=== PATIENT | male | born 1930 | race Caucasian/White ===

== ENCOUNTER 2017-01-01 23:42 | Inpatient (IN) | payer MEDICARE, BC ==
[2017-01-02] MEDS: SODIUM CHLORIDE 0.9% FLUSH 10 ML SOL IV PRN (00:15)
[2017-01-02 00:21] LABS: BASOPHILS % (AUTO) 0 % (0-3); EOSINOPHILS % (AUTO) 0 % (0-9); HEMATOCRIT 33 % (39-53); MEAN CORPUSCULAR HGB CONC 32.7 gm/dl (32.0-36.0); MEAN CORPUSCULAR VOLUME 92 fL (80-100); MONOCYTES % (AUTO) 7.7 % (0-12); NEUTROPHILS % (AUTO) 86.1 % (37-80)
[2017-01-02 00:35] LABS: ALBUMIN 3.2 gm/dl (3.4-5.0); CALCIUM 8.1 mg/dl (8.5-10.1); POTASSIUM 4.2 mMol/L (3.5-5.1)
[2017-01-02 01:46] LABS: APPEARANCE,URINE Clear; BILIRUBIN,URINE NEGATIVE (NEGATIVE); COLOR,URINE Yellow; GLUCOSE, URINE (UA) NEGATIVE (NEGATIVE); KETONES,URINE NEGATIVE (NEGATIVE); LEUKOCYTE ESTERASE ,URINE NEGATIVE (NEGATIVE); NITRATE,URINE NEGATIVE (NEGATIVE); OCCULT BLOOD,URINE NEGATIVE (NEG-TRACE)
[2017-01-02] MEDS ORDERED: LEVOFLOXACIN 25 MG/ML SOL IV ONE (01:49)
[2017-01-02] MEDS ORDERED: ACETAMINOPHEN 325 MG ONE (01:49)
[2017-01-02] MEDS: ACETAMINOPHEN 325 MG PO PRN ×2 (01:50→20:56)
[2017-01-02 02:04] LABS: RBC,URINE 0-1 (0-3AV/HPF); WBC,URINE 0-2 (0-5AV/HPF)
[2017-01-02] MEDS: LEVOFLOXACIN 25 MG/ML 750 MG in SODIUM CHLORIDE 0.9% 250 ML 150 ML IV SCH (02:14)
[2017-01-02] MEDS ORDERED: TRIAMCINOLONE 0.1% CREAM CRE TOP PRN (02:22)
[2017-01-02] MEDS ORDERED: OMEPRAZOLE 40 MG ECC PO PRN (02:22)
[2017-01-02] MEDS ORDERED: NITROGLYCERIN 0.4 MG TAB SL PRN (02:22)
[2017-01-02] MEDS ORDERED: FUROSEMIDE 20 MG TAB PO SCH (02:30)
[2017-01-02 08:52] LABS: BASOPHILS % (AUTO) 1 % (0-3); EOSINOPHILS % (AUTO) 1 % (0-9); HEMATOCRIT 32 % (39-53); MEAN CORPUSCULAR HGB CONC 32.8 gm/dl (32.0-36.0); MEAN CORPUSCULAR VOLUME 92 fL (80-100); MONOCYTES % (AUTO) 11.4 % (0-12); NEUTROPHILS % (AUTO) 73.1 % (37-80)
[2017-01-02 09:07] LABS: CALCIUM 8.3 mg/dl (8.5-10.1); POTASSIUM 4.2 mMol/L (3.5-5.1)
[2017-01-02] MEDS: ALLOPURINOL 100 MG TAB PO SCH ×2 (09:09→17:30)
[2017-01-02] MEDS: ENOXAPARIN 40 MG SOL SC SCH (09:10)
[2017-01-02] MEDS: SERTRALINE HYDROCHLORIDE 50 MG TAB PO SCH (09:10)
[2017-01-02] MEDS: METOPROLOL SUCCINATE 50 MG ER TAB PO SCH (09:10)
[2017-01-02] MEDS: POTASSIUM CHLORIDE 10 MEQ TER PO SCH ×2 (09:10→17:30)
[2017-01-02] MEDS: FUROSEMIDE 20 MG TAB PO SCH (09:12)
[2017-01-02] MEDS: ZINC 50 MG PO SCH (11:08)
[2017-01-02] MEDS: SODIUM CHLORIDE 0.9% FLUSH 10 ML SOL IV SCH ×2 (14:13→22:27)
[2017-01-02] MEDS: PSYLLIUM 3.6 GM/1 TBS PDR PO SCH (17:43)
[2017-01-02] MEDS: ASPIRIN 81 MG CHEWABLE CTB PO SCH (20:53)
[2017-01-02] MEDS: PRAVASTATIN SODIUM 20 MG TAB PO SCH (20:53)
[2017-01-02] MEDS: FAMOTIDINE 20 MG TAB PO SCH (20:53)
[2017-01-03] MEDS ORDERED: SODIUM CHLORIDE 0.9% 250 ML 250 ML IV ONE (01:51)
[2017-01-03] MEDS ORDERED: LEVOFLOXACIN 25 MG/ML SOL IV ONE (01:51)
[2017-01-03] MEDS: LEVOFLOXACIN 25 MG/ML 750 MG in SODIUM CHLORIDE 0.9% 250 ML 150 ML IV SCH (01:59)
[2017-01-03] MEDS: SODIUM CHLORIDE 0.9% FLUSH 10 ML SOL IV PRN (02:03)
[2017-01-03 02:34] VITALS: RESP 20
[2017-01-03] MEDS: SODIUM CHLORIDE 0.9% FLUSH 10 ML SOL IV SCH ×3 (05:33→21:37)
[2017-01-03 08:24] LABS: BASOPHILS % (AUTO) 1 % (0-3); EOSINOPHILS % (AUTO) 4 % (0-9); HEMATOCRIT 32 % (39-53); MEAN CORPUSCULAR HGB CONC 33.2 gm/dl (32.0-36.0); MEAN CORPUSCULAR VOLUME 93 fL (80-100); MONOCYTES % (AUTO) 9.5 % (0-12); NEUTROPHILS % (AUTO) 67.7 % (37-80)
[2017-01-03] MEDS: ALLOPURINOL 100 MG TAB PO SCH ×2 (09:03→17:44)
[2017-01-03] MEDS: POTASSIUM CHLORIDE 10 MEQ TER PO SCH ×2 (09:03→17:44)
[2017-01-03] MEDS: METOPROLOL SUCCINATE 50 MG ER TAB PO SCH (09:06)
[2017-01-03] MEDS: FUROSEMIDE 20 MG TAB PO SCH (09:06)
[2017-01-03] MEDS: ENOXAPARIN 40 MG SOL SC SCH (09:06)
[2017-01-03] MEDS: ZINC 50 MG PO SCH (09:07)
[2017-01-03] MEDS: SERTRALINE HYDROCHLORIDE 50 MG TAB PO SCH (09:07)
[2017-01-03] MEDS ORDERED: LEVOFLOXACIN 500 MG TAB PO SCH (21:00)
[2017-01-03] MEDS: PRAVASTATIN SODIUM 20 MG TAB PO SCH (21:33)
[2017-01-03] MEDS: FAMOTIDINE 20 MG TAB PO SCH (21:33)
[2017-01-03] MEDS: ASPIRIN 81 MG CHEWABLE CTB PO SCH (21:33)
[2017-01-04] MEDS ORDERED: FUROSEMIDE 40 MG TAB PO SCH ×2 (02:22→09:00)
[2017-01-04] MEDS: SODIUM CHLORIDE 0.9% FLUSH 10 ML SOL IV SCH (06:40)
[2017-01-04 07:18] LABS: CALCIUM 8.4 mg/dl (8.5-10.1); POTASSIUM 4.3 mMol/L (3.5-5.1)
[2017-01-04 07:31] VITALS: BP 128/59; PULSE 69; TEMP 98.4; O2SAT 93
[2017-01-04 07:31] LABS: BASOPHILS % (AUTO) 1 % (0-3); EOSINOPHILS % (AUTO) 2 % (0-9); HEMATOCRIT 33 % (39-53); MEAN CORPUSCULAR HGB CONC 33.3 gm/dl (32.0-36.0); MEAN CORPUSCULAR VOLUME 92 fL (80-100); MONOCYTES % (AUTO) 9.5 % (0-12)
[2017-01-04] MEDS: POTASSIUM CHLORIDE 10 MEQ TER PO SCH (08:42)
[2017-01-04] MEDS: ALLOPURINOL 100 MG TAB PO SCH (08:42)
[2017-01-04] MEDS: SERTRALINE HYDROCHLORIDE 50 MG TAB PO SCH (08:43)
[2017-01-04] MEDS: ZINC 50 MG PO SCH (08:43)
[2017-01-04] MEDS: METOPROLOL SUCCINATE 50 MG ER TAB PO SCH (08:43)
[2017-01-04] MEDS: ENOXAPARIN 40 MG SOL SC SCH (08:44)
[2017-01-04] MEDS: PSYLLIUM 3.6 GM/1 TBS PDR PO SCH (08:45)
[2017-01-04] MEDS ORDERED: PANTOPRAZOLE SODIUM 40 MG ECT PO PRN (10:13)
== END 2017-01-04 14:10 | DRG 195 ==
LOC: ED 23:42 → ACUTE CARE 01-02 01:54
PROVIDERS: ADMIT Emergency Medicine; ATTEND Emergency Medicine
DX: J18.9 Pneumonia, unspecified organism (principal); I50.9 Heart failure, unspecified; R53.1 Weakness; Z95.0 Presence of cardiac pacemaker; Z72.0 Tobacco use; R07.9 Chest pain, unspecified
CPT/HCPCS: 36415; 70450; 71010; 80048; 80053; 81001; 83880; 84484; 85025; 87040; 93005; 94150; 94760; 99222; 99231; 99285; J1650; J1956; A6232

== ENCOUNTER 2017-01-07 18:12 | Emergency (ER) | payer MEDICARE, BC ==
[2017-01-07 18:23] VITALS: RESP 26; TEMP 98.7; O2SAT 94
[2017-01-07 18:48] VITALS: BP 109/42; PULSE 80
== END 2017-01-07 19:14 | DRG 206 ==
LOC: ED 18:12
DX: T17.990A Other foreign object in respiratory tract, part unspecified in causing asphyxiation, initial encounter (principal)
CPT/HCPCS: 70360; 71010; 99282

== ENCOUNTER 2017-04-07 00:41 | Inpatient (IN) | payer MEDICARE, BC ==
[2017-04-07 02:15] LABS: APPEARANCE,URINE Clear; BILIRUBIN,URINE NEGATIVE (NEGATIVE); COLOR,URINE Dark yellow; GLUCOSE, URINE (UA) NEGATIVE (NEGATIVE); KETONES,URINE TRACE (NEGATIVE); LEUKOCYTE ESTERASE ,URINE NEGATIVE (NEGATIVE); NITRATE,URINE NEGATIVE (NEGATIVE); OCCULT BLOOD,URINE NEGATIVE (NEG-TRACE); PH,URINE 5.5; UROBILINOGEN,URINE 0.2 (0.2-1.0 EU)
[2017-04-07 02:18] LABS: BASOPHILS % (AUTO) 1 % (0-3); EOSINOPHILS % (AUTO) 0 % (0-9); HEMATOCRIT 35 % (39-53); MEAN CORPUSCULAR HGB CONC 32.9 gm/dl (32.0-36.0); MEAN CORPUSCULAR VOLUME 88 fL (80-100); MONOCYTES % (AUTO) 9.3 % (0-12); NEUTROPHILS % (AUTO) 83.3 % (37-80)
[2017-04-07 02:25] LABS: ALBUMIN 3.1 gm/dl (3.4-5.0); CALCIUM 8.7 mg/dl (8.5-10.1); POTASSIUM 4.6 mMol/L (3.5-5.1)
[2017-04-07 02:27] LABS: RBC,URINE 0-1 (0-3AV/HPF); WBC,URINE 0-2 (0-5AV/HPF)
[2017-04-07] MEDS ORDERED: LORAZEPAM 2 MG/ML SOL ONE (02:32)
[2017-04-07] MEDS ORDERED: LORAZEPAM 2 MG/ML SOL IM ONE (02:32)
[2017-04-07] MEDS ORDERED: HYDROMORPHONE 1 MG/ML SYRINGE IV ONE (02:55)
[2017-04-07] MEDS ORDERED: HYDROMORPHONE HCL 2 MG/ML SOL ONE (02:57)
[2017-04-07] MEDS ORDERED: LEVOFLOXACIN 500 MG (PREMIX) 500 MG/100 ML SOL IV ONE ×2 (05:21→05:30)
[2017-04-07] MEDS ORDERED: HYDROMORPHONE 1 MG/ML SYRINGE IV PRN (05:22)
[2017-04-07] MEDS: SODIUM CHLORIDE 0.9% 1000ML 1,000 ML IV SCH ×2 (05:45→16:45)
[2017-04-07] MEDS ORDERED: DM/GUAIFENESIN SYRUP 10 ML SYRP PO PRN (08:33)
[2017-04-07] MEDS ORDERED: PSYLLIUM HUSK PO PRN (08:33)
[2017-04-07] MEDS ORDERED: TRIAMCINOLONE 0.1% CREAM CRE TOP PRN (08:33)
[2017-04-07] MEDS ORDERED: ALBUTEROL HFA 60 PUFF/INHALER INH PRN (08:33)
[2017-04-07] MEDS ORDERED: ACETAMINOPHEN 325 MG PO PRN (08:33)
[2017-04-07] MEDS ORDERED: FUROSEMIDE 20 MG TAB PO SCH (09:00)
[2017-04-07] MEDS ORDERED: POTASSIUM CHLORIDE 10 MEQ TER PO SCH (09:00)
[2017-04-07] MEDS ORDERED: METOPROLOL SUCCINATE 50 MG ER TAB PO SCH (09:00)
[2017-04-07] MEDS ORDERED: ZINC 50 MG PO SCH (09:00)
[2017-04-07] MEDS: ENOXAPARIN 40 MG SOL SC SCH (10:00)
[2017-04-07] MEDS: SODIUM CHLORIDE 0.9% FLUSH 10 ML SOL IV PRN ×2 (10:00→10:21)
[2017-04-07] MEDS: ESOMEPRAZOLE SODIUM 40 MG VIAL IV SCH (10:01)
[2017-04-07] MEDS: HYDROMORPHONE HCL 2 MG/ML SOL IV PRN (13:51)
[2017-04-07] MEDS ORDERED: ALLOPURINOL 100 MG TAB PO SCH (17:00)
[2017-04-07] MEDS ORDERED: ASPIRIN 81 MG CHEWABLE CTB PO SCH (18:00)
[2017-04-07] MEDS ORDERED: DEXTROSE/SALINE 0.9% 1,000 ML with POTASSIUM CHLORIDE 2 MEQ/ML 20 MEQ IV SCH (19:45)
[2017-04-07] MEDS ORDERED: FAMOTIDINE 20 MG TAB PO SCH (21:00)
[2017-04-07] MEDS ORDERED: PRAVASTATIN SODIUM 20 MG TAB PO SCH (21:00)
[2017-04-07] MEDS: DEXTROSE/SALINE 0.45/KCL 20MEQ 1,000 ML/1,000 ML SOL IV SCH (22:12)
[2017-04-07] MEDS ORDERED: ACETAMINOPHEN 650 MG SUP PR PRN (23:48)
[2017-04-08] MEDS ORDERED: ACETAMINOPHEN 650 MG SUP PR ONE (00:02)
[2017-04-08] MEDS: HYDROMORPHONE HCL 2 MG/ML SOL IV PRN ×2 (00:12→03:34)
[2017-04-08] MEDS ORDERED: LORAZEPAM 2 MG/ML SOL IV ONE (01:07)
[2017-04-08] MEDS ORDERED: OMEPRAZOLE 20 MG CAPSULE PO SCH (07:00)
[2017-04-08 07:24] LABS: BASOPHILS % (AUTO) 1 % (0-3); EOSINOPHILS % (AUTO) 0 % (0-9); HEMATOCRIT 34 % (39-53); MEAN CORPUSCULAR VOLUME 89 fL (80-100); MONOCYTES % (AUTO) 8.9 % (0-12); NEUTROPHILS % (AUTO) 81.5 % (37-80)
[2017-04-08 07:37] LABS: CALCIUM 8.5 mg/dl (8.5-10.1); POTASSIUM 4.5 mMol/L (3.5-5.1)
[2017-04-08] MEDS ORDERED: HALOPERIDOL LACTATE 5 MG/ML SOL IV PRN (08:14)
[2017-04-08] MEDS: DEXTROSE/SALINE 0.45/KCL 20MEQ 1,000 ML/1,000 ML SOL IV SCH ×2 (08:32→19:38)
[2017-04-08] MEDS ORDERED: LEVOFLOXACIN 25 MG/ML 500 MG in SODIUM CHLORIDE 0.9% 100 ML 100 ML IV SCH (09:00)
[2017-04-08] MEDS: ESOMEPRAZOLE SODIUM 40 MG VIAL IV SCH (09:22)
[2017-04-08] MEDS: SODIUM CHLORIDE 0.9% FLUSH 10 ML SOL IV PRN (09:23)
[2017-04-08] MEDS: ENOXAPARIN 40 MG SOL SC SCH (09:23)
[2017-04-09] MEDS: HYDROMORPHONE HCL 2 MG/ML SOL IV PRN (02:08)
[2017-04-09] MEDS ORDERED: ACETAMINOPHEN 325 MG PO PRN (03:21)
[2017-04-09] MEDS: DEXTROSE/SALINE 0.45/KCL 20MEQ 1,000 ML/1,000 ML SOL IV SCH (05:45)
[2017-04-09 07:23] LABS: BASOPHILS % (AUTO) 0 % (0-3); EOSINOPHILS % (AUTO) 0 % (0-9); HEMATOCRIT 33 % (39-53); MEAN CORPUSCULAR HGB CONC 32.7 gm/dl (32.0-36.0); MEAN CORPUSCULAR VOLUME 88 fL (80-100); MONOCYTES % (AUTO) 7.7 % (0-12); NEUTROPHILS % (AUTO) 85.8 % (37-80)
[2017-04-09 07:27] LABS: ALBUMIN 2.6 gm/dl (3.4-5.0); CALCIUM 8.4 mg/dl (8.5-10.1)
[2017-04-09] MEDS: LEVOFLOXACIN 500 MG TAB PO SCH (09:03)
[2017-04-09] MEDS: PANTOPRAZOLE SODIUM 40 MG ECT PO SCH (09:03)
[2017-04-09] MEDS: ENOXAPARIN 40 MG SOL SC SCH (09:04)
[2017-04-09] MEDS: SODIUM CHLORIDE 0.9% FLUSH 10 ML SOL IV SCH (20:05)
[2017-04-09] MEDS ORDERED: QUETIAPINE FUMARATE 25 MG TAB PO SCH (21:00)
[2017-04-10] MEDS: SODIUM CHLORIDE 0.9% FLUSH 10 ML SOL IV SCH ×3 (05:03→20:05)
[2017-04-10] MEDS ORDERED: OMEPRAZOLE 20 MG CAPSULE PO SCH (07:00)
[2017-04-10] MEDS: PANTOPRAZOLE SODIUM 40 MG ECT PO SCH (09:43)
[2017-04-10] MEDS: LEVOFLOXACIN 500 MG TAB PO SCH (09:43)
[2017-04-10] MEDS: ENOXAPARIN 40 MG SOL SC SCH (09:44)
[2017-04-10] MEDS: MELATONIN 3 MG TAB PO PRN (19:09)
[2017-04-10] MEDS ORDERED: SODIUM CHLORIDE 0.9% 250 ML 250 ML IV ONE (19:10)
[2017-04-10] MEDS: QUETIAPINE FUMARATE 25 MG TAB PO SCH ×2 (20:03→20:05)
[2017-04-10] MEDS: TAMSULOSIN HYDROCHLORIDE 0.4 MG CAP PO SCH (20:05)
[2017-04-11] MEDS: SODIUM CHLORIDE 0.9% FLUSH 10 ML SOL IV SCH ×3 (04:17→20:38)
[2017-04-11 07:28] LABS: BASOPHILS % (AUTO) 1 % (0-3); EOSINOPHILS % (AUTO) 1 % (0-9); HEMATOCRIT 33 % (39-53); MEAN CORPUSCULAR HGB CONC 33.9 gm/dl (32.0-36.0); MEAN CORPUSCULAR VOLUME 87 fL (80-100); MONOCYTES % (AUTO) 9.6 % (0-12); NEUTROPHILS % (AUTO) 80.5 % (37-80)
[2017-04-11 07:31] LABS: CALCIUM 8.7 mg/dl (8.5-10.1)
[2017-04-11 07:35] LABS: POTASSIUM 3.9 mMol/L (3.5-5.1)
[2017-04-11] MEDS ORDERED: SODIUM CHLORIDE 0.9% 250 ML 250 ML IV ONE (09:38)
[2017-04-11] MEDS: PANTOPRAZOLE SODIUM 40 MG ECT PO SCH (09:59)
[2017-04-11] MEDS: ENOXAPARIN 40 MG SOL SC SCH (09:59)
[2017-04-11] MEDS: TAMSULOSIN HYDROCHLORIDE 0.4 MG CAP PO SCH (20:37)
[2017-04-11] MEDS: QUETIAPINE FUMARATE 25 MG TAB PO SCH (20:37)
[2017-04-11] MEDS: MELATONIN 3 MG TAB PO PRN (20:37)
[2017-04-11] MEDS: CLOTRIMAZOLE 1% CREAM TOP SCH (20:38)
[2017-04-12] MEDS: SODIUM CHLORIDE 0.9% FLUSH 10 ML SOL IV SCH ×2 (05:05→14:50)
[2017-04-12] MEDS: ENOXAPARIN 40 MG SOL SC SCH (09:20)
[2017-04-12] MEDS: PANTOPRAZOLE SODIUM 40 MG ECT PO SCH (09:20)
[2017-04-12] MEDS: LEVOFLOXACIN 500 MG TAB PO SCH (09:20)
[2017-04-12] MEDS: CLOTRIMAZOLE 1% CREAM TOP SCH ×2 (11:23→20:43)
[2017-04-12] MEDS: TAMSULOSIN HYDROCHLORIDE 0.4 MG CAP PO SCH (20:42)
[2017-04-12] MEDS: QUETIAPINE FUMARATE 25 MG TAB PO SCH (20:42)
[2017-04-12] MEDS: MELATONIN 3 MG TAB PO PRN (20:44)
[2017-04-13 08:17] VITALS: BP 115/72; PULSE 66; RESP 16; TEMP 96.4; O2SAT 98
[2017-04-13] MEDS ORDERED: PNEUMOCOCCAL VACCINE 0.5 ML SOL IM ONE (09:15)
[2017-04-13] MEDS ORDERED: INFLUENZA HIGH DOSE VACCINE 0.5 ML SUS IM ONE (09:15)
[2017-04-13] MEDS: ENOXAPARIN 40 MG SOL SC SCH (09:18)
[2017-04-13] MEDS: LEVOFLOXACIN 500 MG TAB PO SCH (09:20)
[2017-04-13] MEDS: PANTOPRAZOLE SODIUM 40 MG ECT PO SCH (09:20)
[2017-04-13] MEDS: CLOTRIMAZOLE 1% CREAM TOP SCH (09:57)
== END 2017-04-13 11:40 | DRG 947 ==
LOC: ED 00:41 → ACUTE CARE 05:28
PROVIDERS: ADMIT Family Medicine; ATTEND Family Medicine
DX: R41.0 Disorientation, unspecified (principal); J69.0 Pneumonitis due to inhalation of food and vomit; F03.90 Unspecified dementia, unspecified severity, without behavioral disturbance, psychotic disturbance, mood disturbance, and anxiety; R33.9 Retention of urine, unspecified; R82.4 Acetonuria; Z86.69 Personal history of other diseases of the nervous system and sense organs; R00.0 Tachycardia, unspecified; R05 Cough
CPT/HCPCS: 36415; 51798; 70450; 71010; 74177; 80048; 80053; 81001; 82550; 84484; 85025; 90662; 90732; 93005; 94664; 94760; 96372; 96374; 99070; 99222; 99232; 99285; J1170; J1630; J1650; J1956; J2060; Q9967; G0008